=== PATIENT | female | born 1940 | race Caucasian/White ===

== ENCOUNTER → 2017-03-23 | Outpatient (CLI) | payer OTHER ==
[~2017-03-23] MED LIST: ALLOPURINOL 30300 M3 PO; AMBIEN 10 MG TA10 MG PO; ASPIRIN81 M2 PO; FISH OIL 1,0001 EAC5 PO; OGEN PO; PRAVASTATIN SOD80 MG PO; TYLENOL EX-STR500 M2 PO; VERAPAMIL E.R240 M1 PO; VITAMIN D-32000 UNIT PO; ZESTORETIC 20-1 EACH PO
== END ==
LOC: RAD 04:43
DX: Z12.31 Encounter for screening mammogram for malignant neoplasm of breast (principal)

== ENCOUNTER 2020-11-20 11:18 | Inpatient (IN) | payer OTHER ==
[~2020-11-20] VITALS: Ht 170.2 cm; Wt 60.0 kg
[2020-11-20 11:19] VITALS: BP 162/85
[2020-11-20 11:59] LABS: URINE BILIRUBIN NEGATIVE (Negative); URINE BLOOD 1+ (Negative); URINE CLARITY CLEAR; URINE COLOR YELLOW; URINE GLUCOSE-RANDOM* NEGATIVE (Negative); URINE KETONES NEGATIVE (Negative); URINE LEUKOCYTES-REFLEX TRACE (Negative); URINE NITRITE-REFLEX NEGATIVE (Negative); URINE PROTEIN (DIPSTICK) NEGATIVE (Negative); URINE UROBILINOGEN 0.2 E.U./dl (0.2-1.0)
[2020-11-20 12:07] LABS: ABSOLUTE NEUTROPHILS 13.3 thou/uL (1.4-8.2); BASOPHILS 0.4 % (0.0-2.0); EOSINOPHILS 0.3 % (0.0-3.0); HEMATOCRIT 40.7 % (37.0-47.0); HEMOGLOBIN 12.9 gm/dL (12.0-15.0); MCH 30.5 pg (26.0-34.0); MCHC 31.7 g/dL (28.0-37.0); MCV 96.1 fL (80.0-100.0); MONOCYTES 6.2 % (1.0-8.0); PLATELET COUNT 171 thou/uL (150-400); POLYS 85.1 % (36.0-66.0); RBC 4.23 mil/uL (4.20-5.00); RDW 13.5 % (10.5-14.5); WBC 15.6 thou/uL (4.0-11.0)
[2020-11-20 12:12] LABS: SQUAMOUS >10 Many /LPF (0-3); URINE RBC 3-10 Few /HPF (0-2); URINE WBC-REFLEX 6-15 Few /HPF (0-5)
[2020-11-20 12:13] LABS: BACTERIA-REFLEX 1-9 Few /HPF (None Seen)
[2020-11-20 12:14] LABS: CASTS None Seen /LPF (None Seen); CRYSTALS None Seen /LPF (None Seen); MUCUS 0-3 Light strn/LPF (None Seen)
[2020-11-20 12:25] LABS: ALBUMIN 3.8 g/dL (3.4-5.0); CALCIUM 9.5 mg/dL (8.5-10.1); CREATININE 1.1 mg/dL (0.6-1.0); TOTAL BILIRUBIN 0.6 mg/dL (0.2-1.0); TOTAL PROTEIN 7.4 g/dL (6.4-8.2); TROPONIN-I 0.07 ng/mL (<0.06)
[2020-11-20 12:37] LABS: POTASSIUM 3.1 mmol/L (3.5-5.1)
--- NOTE | 2020-11-20 14:23 | EKG ---
[address] [place] [address] ELECTROCARDIOGRAM REPORT Name: ORVILLE FREEMAN Room #: 170-10 ADM IN M.R.#: [id number] Admission: 11/20/20 Attend Phys: Jesse Trinh MD Discharge: Date of : 42 Report #: [id number] [facility] ED Test Date: 2020-11-20 Test Time: 11:45:49 Pat Name: ORVILLE FREEMAN Department: Room: 170 Gender: F Fisher Trap: JOSE : 1940 Requested By: Maryam Linder Order Number: [id number] MD: Abdulaziz Garner Measurements Intervals [place] Rate: 75 P: 92 MA: 147 QRS: 71 QRSD: 112 T: 58 QT: 422 QTc: 472 Interpretive Statements Sinus rhythm Atrial premature complexes Left atrial enlargement Borderline intraventricular conduction delay Borderline ST depression, diffuse leads Compared to ECG 09/04/2008 18:40:14 Atrial premature complex(es) now present Atrial abnormality now present Sinus tachycardia no longer present ST (T wave) deviation still present Electronically Signed On 11-20-2020 14:23:35 CLIENT RELATIONS REPRESENTATIVE by Abdulaziz Garner [email or web address] <ELECTRONICALLY SIGNED> By: Abdulaziz Garner MD, FAC 11/20/20 1423 1145 1145 Abdulaziz Garner MD, [facility] /EPI
--- NOTE | 2020-11-20 14:30 | NUR ---
80-year-old female presenting to the ER with right hip pain status post fall this morning. States that she got up from her living room chair and felt a little shaky in the legs. She walked further into the kitchen and had a fall when her legs gave out on her. Imaging shows right hip fracture, consistent with patient's pain. Remainder of imaging is without any acute fracture. Discussed with orthopedics who will consult for surgical repair. Discussed with trauma who will admit. CM will follow for discharge needs.
--- NOTE | 2020-11-20 21:23 | NUR ---
SPOKE TO CELSO LONG (DPOA) [phone] @ [phone] ABOUT HER MOTHER'S CONDITION AND STATUS. CONSENTS FOR EKLSIE SIGNED.
[2020-11-20 21:28] VITALS: BP 141/59
--- NOTE | 2020-11-20 21:29 | NUR ---
HANDOFF SENT TO 4S
[2020-11-20 22:32] VITALS: BP 141/59
[2020-11-20 23:25] VITALS: BP 140/76
--- NOTE | 2020-11-21 02:01 | NUR ---
PT ARRIVED FROM THE ED AT AROUND 2230 HRS. PT IS ALERT AND ORIENTED WITH SOME FORGETFULNESS.HAS A SCHAEFER TO D/D.IVF STARTED.PT GIVEN FENTANYL IVP FOR R HIP PAIN. HE DENIES ANY SOA OR COUGH. AFEBRILE. SCDS PLACED. PT NPO FOR SURGERY TOMORROW. CALL LIGHT AND NEEDED ITEMS WITHIN REACH.
[2020-11-21 04:45] VITALS: BP 164/82
[2020-11-21 08:03] VITALS: BP 146/66
--- NOTE | 2020-11-21 14:07 | NUR ---
ASSESSMENT: CM REVIEWED CHART. PT WAS ADMITTED DUE TO RIGHT HIP FRATCURE AND IS TO HAVE SURGERY. PT ALSO HAS HX OF DEMENTIA. CM SPOKE WITH PATIENTS DAUGHTER YING TO GATHER MORE INFORMATION. PT LIVES IN A HOUSE ALONE BUT HER DAUGHTER ONLY LIVES 8 HOMES DOWN FROM HER. SHE REPORTS PT HAS ABOUT 6 STEPS WITH HANDRAILS TO ENTER AND NO STEPS ONCE INSIDE. PT IS NORMALLY INDEPENDENT WITH ADLS AND AMBULATION BUT DOES HAVE WALKERS AND A WHEELCHAIR AT HOME FROM HER . PT HAS HAD NO HX OF HH OR SNF. DAUGHTER REPORTS THAT PT NO LONGER DRIVES AND SHE HELPS ASSIST PATIENT WITH GROCERIES/ERRANDS. CM DISCUSSED ROLE. CM WILL CONTINUE TO FOLLOW TO SEE HOW SHE DOES POST OP. DAUGHTER REPORTS SHE PLANS ON STAYING WITH PATIENTS ONCE SHE IS ABLE TO LEAVE THE HOSPITAL.
--- NOTE | 2020-11-21 19:46 | NUR ---
PT CAME IN FROM SURGERY AT AROUND 1900HRS.SHE IS ALERT AND ORIENTED WITH CONFUSION AND FORGETFULNESS. FIDGETING AITTLE BIT. DEIDRE DRSG INTACT TO R HIP WITH ICE PACK ON. ABDUCTOR PILLOW IN PLACE. OFFERED SOMETHING TO DRINK BUT SHE REFUSED. DENIES PAIN. R FOOT WITH GOOD SENSATION , MOVEMENT AND CIRCULATION.FALL PREC IN PLACE.CALL LIGHT WITHIN REACH. REORIENTED TO ROOM AND STAFF.WILL CONTINUE TO CLOSELY MONITOR.
[2020-11-21 19:57] VITALS: BP 147/71
[2020-11-21 20:00] VITALS: BP 133/63
[2020-11-21 21:07] VITALS: BP 145/68
--- NOTE | 2020-11-21 22:03 | NUR ---
ASSUMED CARE OF THE PATIENT AT 0715, PATIENT ALERT X 3 WITH CONFUSION AND FORGETFULNSS. PATIENT C/O PAIN WITH RIGHT HIP AREA, THIS RN NOTIFIED DR FAGAN, RECEIVE ORDER FOR FENTANYL 50 MCG Q2HRS, GIVEN TO THE PATIENT, WITH GOOD RELIEF. PATIENT HAS LEFT FOREARM IV IN PLACE, IV FLUIDS GOING AT 125CC/HR. PATIENT PULLED IV OUT PRIOR TO SURGERY. PATIENT LEFT THE FLOOR FOR SURGERY, IV WILL BE REPLACED IN SURGERY. DAUGHTER CALLED WITH UPDATE. OPAL RETURNED TO THE FLOOR ABOUT 1829, REPORT GIVEN TO ISACC/RN.
[2020-11-21 23:47] VITALS: BP 133/64
[2020-11-22 04:12] VITALS: BP 123/66
[2020-11-22 04:14] VITALS: BP 140/82
[2020-11-22 05:49] LABS: HEMATOCRIT 33.9 % (37.0-47.0); HEMOGLOBIN 11.1 gm/dL (12.0-15.0); MCH 31.7 pg (26.0-34.0); MCHC 32.7 g/dL (28.0-37.0); MCV 96.8 fL (80.0-100.0); RBC 3.5 mil/uL (4.20-5.00); RDW 13.3 % (10.5-14.5)
[2020-11-22 06:13] LABS: ALBUMIN 2.6 g/dL (3.4-5.0); CALCIUM 8.6 mg/dL (8.5-10.1); CREATININE 1.2 mg/dL (0.6-1.0); MAGNESIUM 1.8 mg/dL (1.8-2.4); PHOSPHORUS 2.8 mg/dL (2.5-4.9); POTASSIUM 3.5 mmol/L (3.5-5.1)
[2020-11-22 09:03] VITALS: BP 114/59
--- NOTE | 2020-11-22 10:04 | O ---
[facility] [place] [address] OPERATIVE REPORT Name: ORVLILE FREEMAN Room #: 445-P ADM IN M.R.#: [id number] Admission: 11/20/20 Attend Phys: Jesse Trinh MD Discharge: Date of : 42 Report #: [id number] THIS REPORT FOR: cc: Bakari Chambers MD, Stanley P. MD Yager, Craig A. MD ~ DATE OF SERVICE: 11/21/2020 PREPROCEDURE DIAGNOSIS: Right displaced femoral neck fracture. POSTOPERATIVE DIAGNOSIS: Right displaced femoral neck fracture. PROCEDURE: Right hip hemiarthroplasty. INDICATIONS FOR PROCEDURE: This is a 80-year-old female who sustained a ground level fall and was diagnosed with a right displaced femoral neck fracture. After discussion with the family and the patient, decision made to proceed with right hip hemiarthroplasty. She does have an underlying history of dementia. She does live independently. ANESTHESIA: General. DESCRIPTION OF PROCEDURE: The patient was brought back to the operating room. Anesthesia was begun. Once satisfactory anesthesia was achieved, patient was positioned in the left lateral decubitus position. The operative right lower extremity was prepped and draped in the usual sterile fashion. After prep and drape and once all members of the surgical team were present, a timeout was called and the appropriate patient, site, procedure as well as the administration of preprocedure antibiotics was confirmed. Standard posterolateral incision was made. This was carried sharply through the skin. IT band was encountered. It was placed in abduction and IT band was transected in line with the skin incision was bluntly dissected proximally. Charnley retractor was placed at the musculotendinous junction. Bursal tissue was debrided with electrocautery. Remaining bursa was swept posteriorly. Piriformis tendon was identified and the gluteus medius musculature was retracted. Piriformis was tagged and released from its insertion on the femur. Capsulotomy was performed, which was also subsequently tagged. Fracture site was encountered and head was unable to be removed. The provisional neck cut was made after a Cobra retractor was placed on the anterior surface of the femoral neck. Head was then able to be removed with a corkscrew. This was sized at a 45 mm head ball. This was trialled and felt to be appropriate. Femoral neck retractor was placed into the femoral neck to elevate the femoral neck. This was sequentially broached up to a size 9 implant to size 9 [employer]ri[employer] Accolade stem. This was trialled with standard offset in the 45 mm head ball. Hip was felt to be stable at 90 degrees abduction and 90 degrees of internal [address] [address] OPERATIVE REPORT Name: ORVILLE FREEMAN Room #: 445-P [facility] IN M.R.#: [id number] Admission: 11/20/20 Attend Phys: Jesse Trinh MD Discharge: Date of : 42 Report #: [id number] rotation. Hip was dislocated, trials were removed. Thorough irrigation was performed. Acetabulum was palpated to ensure no bony fragments remained. The stem was then impacted into place. Head ball was impacted on the stem and the hip was reduced. Hip was taken through range of motion. Length and stability were checked and felt to be appropriate. Capsular repair was performed with #5 FiberWire suture over bone tunnels. The Charnley retractor was removed. IT band was closed with #5 FiberWire in a [id number] fashion. 0 Vicryl was used for a deep layer, 2-0 Vicryl for the dermal layer and a 3-0 Monocryl for the skin. Dermabond, 4 x 4's, and Tegaderms were placed as final dressings. The patient tolerated the procedure well. There were no complications. COMPLICATIONS: None. ESTIMATED BLOOD LOSS: 150 mL. DISPOSITION: The patient will be weightbearing as tolerated with posterior hip precautions. Follow up in 3 weeks for recheck x-ray. <ELECTRONICALLY SIGNED> By: Jake Acuna MD 11/22/20 1004 1723 1755 Jake Acuna MD /flores
--- NOTE | 2020-11-22 11:59 | NUR ---
Assumed care of pt at 0700. Pt alert but forgetful. Pain controlled with prn pain meds. IVF infusing. Pt up to the chair with physical therapy. O2 titrated to 1L. Family at bedside. Call light within reach. Will continue to monitor.
--- NOTE | 2020-11-22 14:06 | NUR ---
on-going assessment: CM REVIEWED CHART AND SPOKE WITH PTS DAUGHTER YING WHO WAS VISITING PATIENT. PHYSICAL THERAPY IS RECOMMENDING POST ACUTE CARE. CM DISCUSSED THIS WITH DAUGHTER AND SNF OPTIONS. SHE REPORTS HER FATHER HAD BEEN TO [facility] IN THE PAST AND PREFERS A REFERRAL BE SENT TO [facility]. CM FAXED REFERRAL AND AWAITING FURTHER INPUT FROM SNF AT THIS TIME.
[2020-11-22 17:13] VITALS: BP 142/51
[2020-11-22 19:20] VITALS: BP 117/50
--- NOTE | 2020-11-23 02:32 | NUR ---
PT C/O PAIN TO HER R HIP,MANAGED WITH MED.DRSG TO HER HIP C/D/I WITH ICE PACK APPLIED.PT CONT ON HER SCHEDULED TYLENOL FOR PAIN.PT WAS GIVEN HER SUPPLEMENT BEFORE SHE RETIRED FOR THE NIGHT PER HER REQUEST.PT REPOSITIONED WHILE IN BED.ABDUCTOR PILLOW AND SCD'S IN PLACE.PT SLEEPING ON HER BED AT THIS TIME.CALL LIGHT WITHIN REACH.
[2020-11-23 04:17] VITALS: BP 125/49
[2020-11-23 06:10] LABS: HEMATOCRIT 29.7 % (37.0-47.0); MCH 32.1 pg (26.0-34.0); MCHC 33.7 g/dL (28.0-37.0); MCV 95.3 fL (80.0-100.0); RBC 3.12 mil/uL (4.20-5.00); RDW 13.2 % (10.5-14.5); WBC 10.6 thou/uL (4.0-11.0)
[2020-11-23 06:28] LABS: ALBUMIN 2.3 g/dL (3.4-5.0); CALCIUM 9.4 mg/dL (8.5-10.1); CREATININE 1.1 mg/dL (0.6-1.0); PHOSPHORUS 1.4 mg/dL (2.6-4.7); POTASSIUM 3.2 mmol/L (3.5-5.1)
--- NOTE | 2020-11-23 08:11 | NUR ---
ASSUMED CARE AT 0700. PT IS A& O X2-3 BUT CONFUSED AND PLEASANT. PT IV IS INTACT AND SHOWS NO SIGNS OF REDNESS OR SWELLING. HIP PRECAUTION WITH ABDUCTOR PILLOW BETWEEN LEGS. SCD/GARFIELD/ DEIDRE/ ICE PACK ARE IN PLACE ON THE RIGHT HIP. HOB ELEVATED. WT BEARING TOLERATED. DRESSING ON RIGHT HIP IS INTACT,DRY, CLEAN. PT DENIES OF PAIN AT THIS MOMENT BUT WILL CONTINUE TO MONITOR. LUNGS AND HEART SOUND ARE REGULAR AND CLEAR. PT COMPLAIN OF DRY LIPS AND WAS GIVEN MOISTURIZER TO HELP WITH DRY LIPS. WILL CONTINUE TO MONITOR.
[2020-11-23 08:19] VITALS: BP 122/55
[2020-11-23] MEDS ORDERED: ARICEPT10 M1 PO (10:30)
[2020-11-23] MEDS ORDERED: NORVASC5 M1 PO (11:55)
[2020-11-23] MEDS ORDERED: NAMENDA 10 MG T10 MG PO (11:55)
[2020-11-23 13:07] VITALS: BP 122/55
== END 2020-11-23 16:27 | DRG 522 ==
LOC: ER 11:18 → 4S 14:00 → EROBS 14:00 → 4S 22:32
PROVIDERS: Orthopaedic Surgery; Physician Assistant; ADMIT Surgery; ATTEND Surgery
PROC: 0SRR01Z Replacement of Right Hip Joint, Femoral Surface with Metal Synthetic Substitute, Open Approach (ICD-10-PCS; principal; 2020-11-21)
DX: S72.011A Unspecified intracapsular fracture of right femur, initial encounter for closed fracture (principal); N39.0 Urinary tract infection, site not specified; E44.1 Mild protein-calorie malnutrition; I10 Essential (primary) hypertension; E78.5 Hyperlipidemia, unspecified; Z20.822 Contact with and (suspected) exposure to COVID-19; W07.XXXA Fall from chair, initial encounter; E87.6 Hypokalemia; Y93.89 Activity, other specified; Y92.89 Other specified places as the place of occurrence of the external cause; Y99.8 Other external cause status; Z60.2 Problems related to living alone; Z79.899 Other long term (current) drug therapy
CPT/HCPCS: 10195; 50010; 50101; 50382; 50414; 50939; 53000; 53078; 53369; 54118; 56524; 56527; 56528; 56531; 57095; 57103; 62110; 62900; 70005